=== PATIENT | male | born 1985 | race African-American/Black ===

== ENCOUNTER 2017-11-07 10:09 | Emergency (ER) | payer OTHER ==
[~2017-11-07] VITALS: Ht 175.3 cm; Wt 68.0 kg
[~2017-11-07 10:09] MED LIST: IBUPROFEN 600600 M1 PO; NOHOMEMEDICATIONS; PENICILLIN V P500 MG PO; PREDNISONE 20 M20 MG PO; ROBAXIN 750 MG750 M1 PO
[2017-11-07] MEDS ORDERED: MOBIC15 MG PO (11:12)
[2017-11-07] MEDS ORDERED: LIDODERM1 EACH TOP (11:12)
[2017-11-07] MEDS ORDERED: LIORESAL 10 MG10 MG PO (11:12)
== END 2017-11-07 12:14 | disposition home or self-care (01) ==
LOC: ER 10:09
DX: M54.5 Low back pain (principal); F17.210 Nicotine dependence, cigarettes, uncomplicated; F10.99 Alcohol use, unspecified with unspecified alcohol-induced disorder

== ENCOUNTER 2019-04-11 08:54 | Emergency (ER) | payer OTHER ==
[~2019-04-11] VITALS: Ht 177.8 cm; Wt 70.3 kg
[~2019-04-11 08:54] MED LIST changes: +LIDODERM1 EACH TOP; +LIORESAL 10 MG10 MG PO; +MOBIC15 MG PO
[2019-04-11 08:55] VITALS: BP 111/73
[2019-04-11] MEDS ORDERED: MOBIC15 MG PO (09:07)
[2019-04-11] MEDS ORDERED: NORFLEX100 MG PO (09:07)
[2019-04-11] MEDS ORDERED: MEDROLDOSEPACK PO (09:07)
== END 2019-04-11 09:20 | disposition home or self-care (01) ==
LOC: ER 08:54
DX: S39.012A Strain of muscle, fascia and tendon of lower back, initial encounter (principal); S29.012A Strain of muscle and tendon of back wall of thorax, initial encounter; M54.6 Pain in thoracic spine; F17.210 Nicotine dependence, cigarettes, uncomplicated; X58.XXXA Exposure to other specified factors, initial encounter; Y93.89 Activity, other specified; Y92.89 Other specified places as the place of occurrence of the external cause; Y99.8 Other external cause status

== ENCOUNTER 2019-06-07 16:30 | Emergency (ER) | payer OTHER ==
[~2019-06-07] VITALS: Ht 175.3 cm; Wt 70.3 kg
[~2019-06-07 16:30] MED LIST changes: +MEDROLDOSEPACK PO; +NORFLEX100 MG PO
[2019-06-07] MEDS ORDERED: NORCO 5-325 TA1 EAC1 PO (17:11)
[2019-06-07] MEDS ORDERED: PENICILLIN V P500 MG PO (17:13)
[2019-06-07 17:45] VITALS: BP 127/84
== END 2019-06-07 18:48 | disposition home or self-care (01) ==
LOC: ER 16:30
DX: K08.89 Other specified disorders of teeth and supporting structures (principal); R51 Headache; F17.210 Nicotine dependence, cigarettes, uncomplicated